=== PATIENT | male | born 1985 | race Caucasian/White ===

== ENCOUNTER 2018-03-07 16:35 | Inpatient (IN) ==
--- NOTE | 2018-03-07 17:29 | Emergency Department Note ---
Disposition Clinical Impression: Suicidal ideation, Bipolar disorder, Depression, Acute anxiety Disposition: Admitted As Inpatient Condition: Fair Referrals: Sirena Jeffries MD [Non-Partnered Physician] - Forms: ED Satisfaction Letter General Adult HPI - General Chief complaint: ED Psychiatric Symptoms Stated complaint: SI Time Seen by Provider: 03/07/18 17:24 Source: patient Limitations: no limitations - History of Present Illness HPI Narrative: 33-year-old male with history of bipolar disorder comes emergency department with concerns regarding increasing anxiety depression feeling like harming himself. There is no history of self-injurious behavior or attempted overdose. The patient denies acute physical complaints. No chest pain charge breath about pain vomiting diarrhea confusion falls injuries or any trouble walking talking hearing seeing or speaking. He comes in with his and mother. The patient states his bipolar medications Delsym be working. He is usually seen at [facility] in [place]. Pain Scale: 4 - Related Data Allergies Allergy/AdvReac Type Severity Reaction Status Date / Time codeine Allergy bradycardia Verified 03/07/18 16:43 All systems ED: reviewed and negative except as stated. Past Medical History - Past Medical History Medical history: Reports: no medical history Psychiatric history: Reports: anxiety, bipolar, depression, PTSD, prior suicide attempt, previous psychiatric hospitalization - Social History Smoking Status: Never smoker Smokeless Tobacco Status: No Alcohol use: Reports: occasionally Drug use: Reports: none Physical Exam - General Limitations: no limitations General appearance: alert, in no apparent distress - Head Head exam: atraumatic, normocephalic, normal inspection - Eye Eye exam: Present: normal appearance, PERRL, EOMI - ENT ENT exam: normal exam, normal oropharynx, mucous membranes moist - Neck Neck exam: Present: normal inspection, full ROM, trachea midline - Chest Chest inspection: Present: normal inspection, symmetric chest wall rise - Respiratory Respiratory exam: Present: normal lung sounds bilaterally. Absent: respiratory distress - Cardiovascular Cardiovascular exam: Present: regular rate, normal rhythm, normal heart sounds - Abdominal Exam Abdominal exam: Present: soft, Non-Tender, normal bowel sounds. Absent: tenderness, distention, guarding, rebound, rigidity - Extremities Exam Extremities exam: Present: normal inspection, full ROM, normal capillary refill. Absent: tenderness, pedal edema, joint swelling, calf tenderness - Expanded Lower Extremity Exam Neurovascular/Tendon exam: Present: normal capillary refill. Absent: motor deficit, sensory deficit, tendon deficit, extremity cold to touch - Back Exam Back exam: Present: normal inspection, full ROM. Absent: tenderness, CVA tenderness (R), CVA tenderness (L), vertebral tenderness - Neurological Exam Neurological exam: Present: alert, oriented X3, CN II-XII intact. Absent: motor sensory deficit - Psychiatric Psychiatric exam: Present: normal affect, normal mood - Skin Skin exam: Present: warm, dry, intact, normal color Course Vital Signs Temperature 98.0 F 03/07/18 16:41 Pulse Rate 84 03/07/18 16:41 Respiratory Rate 16 03/07/18 16:41 Blood Pressure 146/93 03/07/18 16:41 O2 Sat by Pulse Oximetry 95 03/07/18 16:41 Temperature 98.0 F 03/07/18 16:43 Pulse Rate 84 03/07/18 16:43 Respiratory Rate 16 03/07/18 16:43 Blood Pressure 146/93 03/07/18 16:43 O2 Sat by Pulse Oximetry 95 03/07/18 16:43 Oxygen Delivery Oxygen Delivery Room Air Medical Decision Making - [facility] Narrative Medical decision making narrative: The patient has no physical complaints and there is no history of self-injurious behaviors or attempted overdose. He has been medically cleared. I called the counselor from , they have evaluated the patient recommend psychiatric admission. The patient is stable pending admission - Lab Data Lab results reviewed: Yes I reviewed the patient's lab results. Result diagrams: 03/07/18 17:37 03/07/18 17:37 Lab Results 03/07/18 03/07/18 03/07/18 Range/Units 17:37 17:37 17:55 WBC 6.2 (4.3-11.1) K/mcL RBC 4.37 (4.19-5.50) M/mcL Hgb 12.9 (12.9-16.9) g/dL Hct 39.3 (37.5-50.1) % MCV 89.9 (83.0-100.0) fL MCH 29.5 (28.0-33.3) pg MCHC 32.8 (31.6-35.5) g/dL RDW 11.9 (11.5-14.5) % Plt Count 225 (140-400) K/mcL MPV 9.2 L (9.4-12.4) fL Immature Gran % 0.2 (0-4) % Seg Neutrophils % 59.0 % Lymphocytes % 32.7 % Monocytes % 6.0 % Eosinophils % 1.8 % Basophils % 0.3 % Neutrophils # 3.7 (1.6-8.9) K/mcL Lymphocytes # 2.0 (0.6-4.6) K/mcL Monocytes # 0.4 (0.0-1.3) K/mcL Eosinophils # 0.1 (0.0-0.6) K/mcL Basophils # 0.0 (0.0-0.2) K/mcL Sodium 136 (136-145) mEq/L Potassium 5.0 (3.5-5.1) mEq/L Chloride 101 (98-107) mEq/L Carbon Dioxide 30 H (23-29) mEq/L BUN 12 (6-20) mg/dL Creatinine 0.78 (0.70-1.30) mg/dL Est GFR ( Amer) > 60 (> 60) Est GFR (Non-Af Amer) > 60 (> 60) BUN/Creatinine Ratio 15 (6-26) Glucose 109 H (70-105) mg/dL Calculated Osmolality 282 (280-300) Calcium 9.8 (8.6-10.3) mg/dL Total Bilirubin 0.2 L (0.3-1.0) mg/dL Direct Bilirubin 0.1 (0.0-0.2) mg/dL Indirect Bilirubin 0.1 (0.0-1.2) mg/dL AST 17 (13-39) Units/L ALT 17 (7-52) Units/L Alkaline Phosphatase 90 (34-104) Units/L Serum Total Protein 7.1 (6.4-8.9) g/dL Albumin 4.7 (3.5-5.7) g/dL Globulin 2.4 (2.4-3.5) g/dL Albumin/Globulin Ratio 2.0 (1.1-2.2) Urine Color Yellow (Yellow) Urine Clarity Clear (Clear) Urine pH 6.0 (5.0-8.0) pH Units Ur Specific [place] 1.006 L (1.010-1.025) Urine Protein Negative (Neg-Trace) mg/dL Urine Glucose (UA) Normal (Normal) mg/dL Urine Ketones Negative (Negative) mg/dL Urine Blood Negative (Negative) Urine Nitrite Negative (Negative) Urine Bilirubin Negative (Negative) Urine Urobilinogen Normal (Normal) mg/dL Ur Leukocyte Esterase Negative (Negative) Salicylates < 2.5 L (15.0-30.0) mg/dL Urine Opiates Screen (Efmtjp=006) ng/mL Acetaminophen < 10 L (10-20) mcg/mL Ur Barbiturates Screen (Zvrwtc=378) ng/mL Ur Phencyclidine Scrn (Cutoff=25) ng/mL Ur Amphetamines Screen (Zvtzlz=5036) ng/mL U Benzodiazepines Scrn (Gdtkik=870) ng/mL Urine Cocaine Screen (Cutoff= 300) ng/mL U Marijuana (THC) Screen (Cutoff = 50) ng/mL Ur Drug Screen Interp Ethyl Alcohol < 10 (Less than 10) mg/dL 03/07/18 Range/Units 17:55 WBC (4.3-11.1) K/mcL RBC (4.19-5.50) M/mcL Hgb (12.9-16.9) g/dL Hct (37.5-50.1) % MCV (83.0-100.0) fL MCH (28.0-33.3) pg MCHC (31.6-35.5) g/dL RDW (11.5-14.5) % Plt Count (140-400) K/mcL MPV (9.4-12.4) fL Immature Gran % (0-4) % Seg Neutrophils % % Lymphocytes % % Monocytes % % Eosinophils % % Basophils % % Neutrophils # (1.6-8.9) K/mcL Lymphocytes # (0.6-4.6) K/mcL Monocytes # (0.0-1.3) K/mcL Eosinophils # (0.0-0.6) K/mcL Basophils # (0.0-0.2) K/mcL Sodium (136-145) mEq/L Potassium (3.5-5.1) mEq/L Chloride (98-107) mEq/L Carbon Dioxide (23-29) mEq/L BUN (6-20) mg/dL Creatinine (0.70-1.30) mg/dL Est GFR ( Amer) (> 60) Est GFR (Non-Af Amer) (> 60) BUN/Creatinine Ratio (6-26) Glucose (70-105) mg/dL Calculated Osmolality (280-300) Calcium (8.6-10.3) mg/dL Total Bilirubin (0.3-1.0) mg/dL Direct Bilirubin (0.0-0.2) mg/dL Indirect Bilirubin (0.0-1.2) mg/dL AST (13-39) Units/L ALT (7-52) Units/L Alkaline Phosphatase (34-104) Units/L Serum Total Protein (6.4-8.9) g/dL Albumin (3.5-5.7) g/dL Globulin (2.4-3.5) g/dL Albumin/Globulin Ratio (1.1-2.2) Urine Color (Yellow) Urine Clarity (Clear) Urine pH (5.0-8.0) pH Units Ur Specific [place] (1.010-1.025) Urine Protein (Neg-Trace) mg/dL Urine Glucose (UA) (Normal) mg/dL Urine Ketones (Negative) mg/dL Urine Blood (Negative) Urine Nitrite (Negative) Urine Bilirubin (Negative) Urine Urobilinogen (Normal) mg/dL Ur Leukocyte Esterase (Negative) Salicylates (15.0-30.0) mg/dL Urine Opiates Screen Negative (Jeoftl=155) ng/mL Acetaminophen (10-20) mcg/mL Ur Barbiturates Screen Negative (Uowksu=924) ng/mL Ur Phencyclidine Scrn Negative (Cutoff=25) ng/mL Ur Amphetamines Screen Negative (Lripai=9604) ng/mL U Benzodiazepines Scrn Negative (Xmjaqw=308) ng/mL Urine Cocaine Screen Negative (Cutoff= 300) ng/mL U Marijuana (THC) Screen Negative (Cutoff = 50) ng/mL Ur Drug Screen Interp See Below Ethyl Alcohol (Less than 10) mg/dL
[2018-03-07 17:59] LABS: Basophils % 0.3 %; Eosinophils # 0.1 K/mcL (0.0-0.6); Eosinophils % 1.8 %; Hematocrit 39.3 % (37.5-50.1); Hemoglobin 12.9 g/dL (12.9-16.9); Immature Granulocytes % 0.2 % (0-4); Lymphocytes % 32.7 %; Mean Corpuscular HGB Conc 32.8 g/dL (31.6-35.5); Mean Corpuscular Hemoglobin 29.5 pg (28.0-33.3); Mean Corpuscular Volume 89.9 fL (83.0-100.0); Mean Platelet Volume 9.2 fL (9.4-12.4); Monocytes # 0.4 K/mcL (0.0-1.3); Neutrophils # 3.7 K/mcL (1.6-8.9); Platelet Count 225 K/mcL (140-400); Red Blood Count 4.37 M/mcL (4.19-5.50); Red Cell Distribution Width 11.9 % (11.5-14.5)
[2018-03-07 18:08] LABS: Bilirubin,Urine Negative (Negative); Blood,Urine Negative (Negative); Clarity,Urine Clear (Clear); Color,Urine Yellow (Yellow); Glucose,Urine (UA) Normal (Normal); Ketones,Urine Negative (Negative); Leukocyte Esterase,Urine Negative (Negative); Nitrite,Urine Negative (Negative); Protein,Urine Negative (Neg-Trace); Specific Gravity,Urine 1.006 (1.010-1.025); Urobilinogen,Urine Normal (Normal)
[2018-03-07 18:17] LABS: Acetaminophen < 10 mcg/mL (10-20); Alanine Aminotransferase 17 Units/L (7-52); Albumin 4.7 g/dL (3.5-5.7); Alkaline Phosphatase 90 Units/L (34-104); Aspartate Amino Transferase 17 Units/L (13-39); BUN/Creatinine Ratio 15 (6-26); Bilirubin,Direct 0.1 mg/dL (0.0-0.2); Bilirubin,Indirect 0.1 mg/dL (0.0-1.2); Bilirubin,Total 0.2 mg/dL (0.3-1.0); Blood Urea Nitrogen 12 mg/dL (6-20); Calcium 9.8 mg/dL (8.6-10.3); Carbon Dioxide 30 mEq/L (23-29); Chloride 101 mEq/L (98-107); Ethanol < 10 mg/dL (Less than 10); Globulin 2.4 g/dL (2.4-3.5); Glucose 109 mg/dL (70-105); Osmolality,Calculated 282 (280-300); Salicylate < 2.5 mg/dL (15.0-30.0); Sodium 136 mEq/L (136-145); Total Protein 7.1 g/dL (6.4-8.9); eGFR For Non-African Americans > 60 (> 60)
[2018-03-07 18:43] LABS: Amphetamine Screen,Urine Negative ng/mL (Cutoff=1000); Barbiturate Screen,Urine Negative ng/mL (Cutoff=200); Benzodiazepines Screen,Urine Negative ng/mL (Cutoff=200); Cannabinoid Screen,Urine Negative ng/mL (Cutoff = 50); Cocaine Screen,Urine Negative ng/mL (Cutoff= 300); Opiate Screen,Urine Negative ng/mL (Cutoff=300); Phencyclidine Screen,Urine Negative ng/mL (Cutoff=25)
[2018-03-07] MEDS ORDERED: traZODone 50 MG TABLET PO PRN (20:10)
[2018-03-07] MEDS ORDERED: *HR* LORazepam 2 MG/ML VIAL IM PRN (20:10)
[2018-03-07] MEDS ORDERED: hydrOXYzine pamoate 25 MG CAPSULE PO PRN (20:10)
[2018-03-07] MEDS ORDERED: Mag Hydrox/Al Hydrox/Simeth 30 ML UDC PO PRN (20:10)
[2018-03-07] MEDS ORDERED: MOM Conc 10 ML UD.LIQ PO PRN (20:10)
[2018-03-07] MEDS ORDERED: Ibuprofen 400 MG TABLET PO PRN (20:10)
[2018-03-07] MEDS ORDERED: Haloperidol Lactate 5 MG/ML VIAL IM PRN (20:10)
[2018-03-07] MEDS ORDERED: *HR* LORazepam 1 MG TABLET PO PRN (20:10)
[2018-03-07] MEDS: Gabapentin 400 MG CAPSULE PO SCH (21:09)
[2018-03-07] MEDS: Lurasidone 20 MG TABLET PO SCH (21:10)
[2018-03-08] MEDS: Gabapentin 400 MG CAPSULE PO SCH ×3 (09:03→21:03)
[2018-03-08] MEDS: FLUoxetine 20 MG CAPSULE PO SCH (09:03)
--- NOTE | 2018-03-08 09:05 | Psychiatry History & Physical ---
Date of Encounter: 03/08/18 Time of Encounter: 09:03 History of Present Illness Patient Stated Chief Complaint: "I was feeling like killing myself" Medicare Admission Attestation: For traditional Medicare patients the provided hospital inpatient services are reasonable and necessary and in the case of services not specified as inpatient-only under 42 CFR 419.22 (n), that they are appropriately provided as inpatient services in accordance 42 CFR 412.3. For Critical Access Hospital the patient may reasonably be expected to be discharged or transferred to a hospital within 96 hours after admission to the Critical Access Hospital. Admitted From: Emergency Dept Plans for Post Hospital Care: Home History of Present Illness: Mr. Mandujano is a 33 year old male who presented to the emergency room with depression which has been worsening since his grandmother in October. He reported that he has been hopeless with anhedonia decreased interest feelings of guilt and worthlessness low energy and impaired concentration he has had fleeting suicidal ideations with a plan to cut his wrists. He has been compliant with his Prozac and arrested him. He states currently that while he does have the fleeting thoughts he has no intention of killing himself and would not want to do that to his girlfriend. Additionally his brother had a suicide attempt in October which left him with a CVA so he would not want to have that sort of a complication. Substance abuse: He reports occasionally drinking a shot of whiskey about once per month he denies other drugs of abuse. Past Med Surg Social Fam HX - Past Medical History Medical history: no medical history - Past Psychiatric History Psychiatric history: Reports: ADHD, bipolar, previous psychiatric hospitalization Past psychiatric history details: He has been at [address] twice in the past in 2013 in 2014. He has also been at the crisis unit and [place] police on a few occasions. He follows with [facility] for his outpatient services. He has been tried on numerous psychiatric medications and says that at times he has been on up to 10 psychiatric medications at the time. He said he then went off his cold turkey but started to go back on them in August when his grandmother got sick. Knee that he can recall in the past are Abilify which made him itchy Wellbutrin which did not have much impact records also support that he has been tried on BuSpar Geodon Vyvanse Zyprexa Klonopin and Ativan in the past. Family psychiatric history: Yes Family Psychiatric History Details: He has a brother with substance use disorder. Family History of Suicide: Attempted Family Suicide History Details: Brother attempted suicide with an overdose of heroin and methamphetamines and ended up with a CVA - Past Surgical History Surgical History: cholecystectomy - Social History Smoking Status: Never smoker Smokeless Tobacco Status: No Alcohol use: occasionally Drug use: none - Family History Mother Adopted: [place]: mark mandujano Age: 62 Family Member Ethnicity: Non- Living Status: Still Living Hx Family Cardiac Disorders: No Hx Family Respiratory Disorders: Yes (COPD) Hx Family Cancer: No Hx Family GI Disorders: No Hx Family Genitourinary Disorders: No Hx Family Endocrine Disorder: No Hx Family Musculoskeletal Disorders: No Hx Family Neuromuscular Disorders: No Hx Family Neurologic Disorders: No Hx Family HEENT Disorders: No Hx Family Autoimmune Disorders: No Hx Family Reproductive Disorders: No Hx Family Psychosocial Disorders: No Hx Family Medical Disorders: Yes (bipolar) Medications & Allergies FLUoxetine HCl [Fluoxetine HCl] 80 mg PO DAILY 03/07/18 [History] Gabapentin [Neurontin] 800 mg PO TID 03/07/18 [History] Lurasidone HCl [Latuda] 60 mg PO QPM 03/07/18 [History] Allergy/AdvReac Type Severity Reaction Status Date / Time codeine Allergy bradycardia Verified 03/07/18 16:43 Review of Systems Constitutional: Reports: other (He has Klinefelter's and has some feminized features). Denies: fever, chills, weakness, weight change Neurological: Denies: headache, weakness, numbness, memory loss Psychiatric: Reports: depression, suicidal ideation, anhedonia, difficulty concentrating, hopelessness Exam - HEENT Head exam IM: Present: atraumatic - Skin Skin exam IM: Present: dry, warm - Constitutional Vitals: Temp Pulse Resp BP Pulse Ox 99.1 F 75 16 128/83 98 03/07/18 20:32 03/07/18 20:32 03/07/18 20:32 03/07/18 20:32 03/07/18 20:32 General appearance: age & developmentally appropriate Additional observations: Consistent with Klinefelter's appearance - Musculoskeletal Gait: normal Station: other Strength & Tone: normal for patient - Psychiatric Patient Orientation: Yes Person, Yes Time, Yes Place, Yes Circumstance Level of alertness: Alert Behavior: calm Psychomotor activity: Normal Eye Contact: Maintains Eye Contact Mood Description: Depressed Patient description of mood: "Down" Affect description: congruent with mood Speech Volume: Normal Speech pattern: normal rate Language & Vocabulary: consistent with education Thought Process: Linear, Goal Oriented Thought Content: Yes Suicidal ideation Perceptual Disturbances: No Auditory hallucinations, No Visual hallucinations Attention Span Ability: Capable of Focused Attention Memory Description: Grossly Intact Patient Reliability: Reliable Historian Fund of knowledge: Yes abstraction ability, Yes average, Yes aware of current events Intelligence Estimate: Average Judgment: Fair Insight: Partial Results - Drug Levels and Toxicology Drug Levels and Toxicology: Drug Levels and Toxicity 03/07/18 03/07/18 17:37 17:55 Urine Opiates Screen Negative Acetaminophen < 10 L Ur Barbiturates Screen Negative Ur Phencyclidine Scrn Negative Ur Amphetamines Screen Negative U Benzodiazepines Scrn Negative Urine Cocaine Screen Negative U Marijuana (THC) Screen Negative Ethyl Alcohol < 10 - Labs Labs: Laboratory Last Values WBC 6.2 K/mcL (4.3-11.1) 03/07/18 17:37 RBC 4.37 M/mcL (4.19-5.50) 03/07/18 17:37 Hgb 12.9 g/dL (12.9-16.9) 03/07/18 17:37 Hct 39.3 % (37.5-50.1) 03/07/18 17:37 MCV 89.9 fL (83.0-100.0) 03/07/18 17:37 MCH 29.5 pg (28.0-33.3) 03/07/18 17:37 MCHC 32.8 g/dL (31.6-35.5) 03/07/18 17:37 RDW 11.9 % (11.5-14.5) 03/07/18 17:37 Plt Count 225 K/mcL (140-400) 03/07/18 17:37 MPV 9.2 fL (9.4-12.4) L 03/07/18 17:37 Immature Gran % 0.2 % (0-4) 03/07/18 17:37 Seg Neutrophils % 59.0 % 03/07/18 17:37 Lymphocytes % 32.7 % 03/07/18 17:37 Monocytes % 6.0 % 03/07/18 17:37 Eosinophils % 1.8 % 03/07/18 17:37 Basophils % 0.3 % 03/07/18 17:37 Neutrophils # 3.7 K/mcL (1.6-8.9) 03/07/18 17:37 Lymphocytes # 2.0 K/mcL (0.6-4.6) 03/07/18 17:37 Monocytes # 0.4 K/mcL (0.0-1.3) 03/07/18 17:37 Eosinophils # 0.1 K/mcL (0.0-0.6) 03/07/18 17:37 Basophils # 0.0 K/mcL (0.0-0.2) 03/07/18 17:37 Sodium 136 mEq/L (136-145) 03/07/18 17:37 Potassium 5.0 mEq/L (3.5-5.1) 03/07/18 17:37 Chloride 101 mEq/L (98-107) 03/07/18 17:37 Carbon Dioxide 30 mEq/L (23-29) H 03/07/18 17:37 BUN 12 mg/dL (6-20) 03/07/18 17:37 Creatinine 0.78 mg/dL (0.70-1.30) 03/07/18 17:37 Est GFR ( Amer) > 60 (> 60) 03/07/18 17:37 Est GFR (Non-Af Amer) > 60 (> 60) 03/07/18 17:37 BUN/Creatinine Ratio 15 (6-26) 03/07/18 17:37 Glucose 109 mg/dL (70-105) H 03/07/18 17:37 Calculated Osmolality 282 (280-300) 03/07/18 17:37 Calcium 9.8 mg/dL (8.6-10.3) 03/07/18 17:37 Total Bilirubin 0.2 mg/dL (0.3-1.0) L 03/07/18 17:37 Direct Bilirubin 0.1 mg/dL (0.0-0.2) 03/07/18 17:37 Indirect Bilirubin 0.1 mg/dL (0.0-1.2) 03/07/18 17:37 AST 17 Units/L (13-39) 03/07/18 17:37 ALT 17 Units/L (7-52) 03/07/18 17:37 Alkaline Phosphatase 90 Units/L (34-104) 03/07/18 17:37 Serum Total Protein 7.1 g/dL (6.4-8.9) 03/07/18 17:37 Albumin 4.7 g/dL (3.5-5.7) 03/07/18 17:37 Globulin 2.4 g/dL (2.4-3.5) 03/07/18 17:37 Albumin/Globulin Ratio 2.0 (1.1-2.2) 03/07/18 17:37 Urine Color Yellow (Yellow) 03/07/18 17:55 Urine Clarity Clear (Clear) 03/07/18 17:55 Urine pH 6.0 pH Units (5.0-8.0) 03/07/18 17:55 Ur Specific [place] 1.006 (1.010-1.025) L 03/07/18 17:55 Urine Protein Negative mg/dL (Neg-Trace) 03/07/18 17:55 Urine Glucose (UA) Normal mg/dL (Normal) 03/07/18 17:55 Urine Ketones Negative mg/dL (Negative) 03/07/18 17:55 Urine Blood Negative (Negative) 03/07/18 17:55 Urine Nitrite Negative (Negative) 03/07/18 17:55 Urine Bilirubin Negative (Negative) 03/07/18 17:55 Urine Urobilinogen Normal mg/dL (Normal) 03/07/18 17:55 Ur Leukocyte Esterase Negative (Negative) 03/07/18 17:55 Salicylates < 2.5 mg/dL (15.0-30.0) L 03/07/18 17:37 Urine Opiates Screen Negative ng/mL (Sayvxn=329) 03/07/18 17:55 Acetaminophen < 10 mcg/mL (10-20) L 03/07/18 17:37 Ur Barbiturates Screen Negative ng/mL (Wijayr=178) 03/07/18 17:55 Ur Phencyclidine Scrn Negative ng/mL (Cutoff=25) 03/07/18 17:55 Ur Amphetamines Screen Negative ng/mL (Gvbfdb=8067) 03/07/18 17:55 U Benzodiazepines Scrn Negative ng/mL (Skaakk=690) 03/07/18 17:55 Urine Cocaine Screen Negative ng/mL (Cutoff= 300) 03/07/18 17:55 U Marijuana (THC) Screen Negative ng/mL (Cutoff = 50) 03/07/18 17:55 Ur Drug Screen Interp See Below 03/07/18 17:55 Ethyl Alcohol < 10 mg/dL (Less than 10) 03/07/18 17:37 Assessment and Plan (1) Bipolar disorder Current visit: Yes Status: Acute Plan: Admit inpatient for safety and stabilization, Close observation, Suicide Precautions per unit protocol, Encourage participation in unit milieu, Group Therapy, Monitor sleep, Monitor appetite Additional Plan: Will augment his Prozac with Wellbutrin XL 150 by mouth every morning to further aid in his depression. Encourage attendance of group therapy. I have reviewed his past records. Risks, benefits, side effects, alternatives discussed w/pt: Yes Patient agreeable to treatment: Yes Plans for Post Hospital Care: Home Estimated Length of Stay (Days): 2 Qualifiers: Active/Remission status: currently active Current bipolar episode type: depressed Current episode severity: severe Psychotic features: without psychotic features Qualified Code(s): F31.4 - Bipolar disorder, current episode depressed, severe, without psychotic features
[2018-03-08] MEDS: BuPROPion XL (24 HR) 150 MG TABLET PO SCH (09:37)
[2018-03-08] MEDS: Lurasidone 20 MG TABLET PO SCH (18:56)
[2018-03-08] MEDS ORDERED: Lurasidone 20 MG TABLET PO SCH (21:00)
[2018-03-09] MEDS: FLUoxetine 20 MG CAPSULE PO SCH (09:03)
[2018-03-09] MEDS: Gabapentin 400 MG CAPSULE PO SCH (09:03)
[2018-03-09] MEDS: BuPROPion XL (24 HR) 150 MG TABLET PO SCH (09:03)
[2018-03-09 09:34] VITALS: BP 113/78
--- NOTE | 2018-03-09 09:37 | Discharge Summary ---
Date of Encounter: 03/09/18 Time of Encounter: 09:32 Diagnosis - Discharge Diagnosis (1) Bipolar disorder Status: Acute Qualifiers: Active/Remission status: currently active Current bipolar episode type: depressed Current episode severity: severe Psychotic features: without psychotic features Qualified Code(s): F31.4 - Bipolar disorder, current episode depressed, severe, without psychotic features Medications - Discharge Medications Prescriptions: BuPROPion XL (24 HR) [Wellbutrin Xl] 150 mg PO DAILY #30 tab.er.24h FLUoxetine HCl [Fluoxetine HCl] 80 mg PO DAILY 03/07/18 [History] Gabapentin [Neurontin] 800 mg PO TID 03/07/18 [History] Lurasidone HCl [Latuda] 60 mg PO DAILY 03/07/18 [History] BuPROPion XL (24 HR) [Wellbutrin Xl] 150 mg PO DAILY #30 tab.er.24h 03/09/18 [Rx] Allergy/AdvReac Type Severity Reaction Status Date / Time codeine Allergy "SLOWS Verified 03/08/18 19:02 DOWN MY HEART" Results Procedures and tests throughout hospitalization: Completed Lab Orders Category Date Time Status Acetaminophen Stat Lab 03/07/18 17:37 Completed Basic Metabolic Panel Stat Lab 03/07/18 17:37 Completed Complete Blood Count [HEME] Stat Lab 03/07/18 17:37 Completed Drug Screen, Urine [UCHEM] Stat Lab 03/07/18 17:55 Completed Ethanol Stat Lab 03/07/18 17:37 Completed Hepatic Panel Stat Lab 03/07/18 17:37 Completed Salicylate Stat Lab 03/07/18 17:37 Completed Urinalysis reflex Microscopic [URIN] Stat Lab 03/07/18 17:55 Completed Provider Date of admission: 03/07/18 19:21 Primary care physician: PCP NONE Discharging clinician: Toyin Dennis Psychiatry Exam - Constitutional Vitals: Temp Pulse Resp BP Pulse Ox 98.6 F 86 18 126/82 100 03/08/18 21:00 03/08/18 21:00 03/08/18 21:00 03/08/18 21:00 03/08/18 21:00 Additional observations: Patient is alert and oriented [address] time and situation, muscle tone grossly intact, speech normal limits for rhythm, rate, content and volume. Muscle tone is normal for patient. Grooming and hygiene are appropriate and eye contact is maintained appropriately. The patient appears age appropriate. He is feminized features. Behavior is cooperative. Thought content is negative for suicidal or homicidal thoughts ideations or plans. There are no hallucinations or delusions. Mood is good and affect is reactive, consistent and congruent. Thought process is linear, logical, goal oriented and coherent thought. Memory is intact to recent and remote as the patient is able to recall several items after a delay and can consistently recall childhood information. Language and vocabulary are consistent with education and intelligence is estimated to be average based on education and general fund of information. Concentration and attention are sustained and appropriate. Insight and judgment are intact as the patient agrees with her diagnosis and the need for ongoing mental health treatment. Hospital Course Hospital course: Mr. Acevedo is a 33 year old male who was admitted for depression and suicidal ideations. Even upon admission he reported that he did not have any intention to harm himself. He is well aware of the impact this can have as his brother is now debilitated due to suicide attempt which caused CVA. He has done well on the unit. Wellbutrin was added which he has tolerated well.Patient was educated of diagnosis and the risk-benefit side effects of this alternative treatment options and was monitored for responsiveness and side effects. Mood anxiety sleep and appetite interest improved as did future orientation. Self-harm thoughts subsided, thinking cleared, psychosis resolved, and mood stabilized. Coleman diehl was able to attend both individual and group therapy sessions as well as meeting with the psychiatrist daily and urged to discuss any medication or treatment issues or other concerns. The patient was educated primarily by verbal means about their diagnosis and manifestations in their life. The option for treatment including group and individual therapy programming was offered to the patient in the use of medications with all their potential risks, benefits, and side effects were discussed with the patient at length. The patient was given the opportunity to ask questions and was noted to participate in the treatment in the planning process. The patient felt ready and eager to be discharged from the inpatient psychiatric unit to continue on with treatment as an outpatient. The patient agreed that is they were safe for this disposition. The patient was considered to be able to participate in informed consent and decision making with respect to medical, legal, and financial issues of the time of discharge. At the time of discharge the patient adamantly denied any concerns for lethality including suicidal or homicidal thoughts ideations or plans and was future oriented toward ongoing mental health care, medical follow- up and sobriety. Time spent discussing smoking cessation with patient: 3 to 10 minutes Does patient wish to continue nicotine replacement upon disc: No - Time Spent with Patient Total time spent providing and/or coordinating discharge services: Greater than 30 minutes Specific discharge activities: Interval history reviewed. Available labs reviewed . Psychotherapy provided. Patient had an opportunity to ask questions and address concerns. Patient was in agreement with the treatment plan. The risks benefits and side effects of medications were discussed with the patient, including alternatives and treatment. The patient was educated on the abstaining from any alcohol or illicit substances, following up with all scheduled appointments, and taking all medications as prescribed. Assessment and Plan - Patient/Caregiver Discharge Instructions Activity: resume usual activities as tolerated Diet: regular diet Additional Instructions: Continue current medications. Follow up with outpatient mental health. Encourage continued therapy in a group or individual setting. The patient was discharged to home. - Follow up Plan Follow up with: NONE,PCP [Primary Care Provider] - Functional capacity at discharge: independent ambulation Overall status at discharge: Stable Disposition: Home, Self-Care Quality - Multiple Antipsychotics Patient discharged on 2 or more antipsychotic medications: No Procedures - Procedures Procedures: Medication Management, Crisis Stabilization, Supportive Therapy, Group Therapy, Psychoeducational Therapy
== END 2018-03-09 13:22 | disposition home or self-care (01) | DRG 885 ==
LOC: EMEROOARM 16:35 → 1ANU 19:21
PROVIDERS: ADMIT Psychiatry & Neurology Psychiatry; ATTEND Psychiatry & Neurology Psychiatry

== ENCOUNTER 2018-11-29 17:03 | Inpatient (IN) ==
[2018-11-29 17:45] LABS: Bilirubin,Urine Negative (Negative); Blood,Urine Negative (Negative); Clarity,Urine Clear (Clear); Color,Urine Yellow (Yellow); Glucose,Urine (UA) Normal (Normal); Ketones,Urine Negative (Negative); Leukocyte Esterase,Urine Negative (Negative); Nitrite,Urine Negative (Negative); PH,Urine 6.5 pH Units (5.0-8.0); Protein,Urine Negative (Neg-Trace); Specific Gravity,Urine 1.014 (1.010-1.025); Urobilinogen,Urine Normal (Normal)
[2018-11-29 17:55] LABS: Amphetamine Screen,Urine Negative ng/mL (Cutoff=1000); Barbiturate Screen,Urine Negative ng/mL (Cutoff=200); Benzodiazepines Screen,Urine Positive ng/mL (Cutoff=200); Cannabinoid Screen,Urine Negative ng/mL (Cutoff = 50); Cocaine Screen,Urine Negative ng/mL (Cutoff= 300); Opiate Screen,Urine Negative ng/mL (Cutoff=300); Phencyclidine Screen,Urine Negative ng/mL (Cutoff=25)
[2018-11-29 18:06] LABS: Basophils % 0.5 %; Eosinophils # 0.1 K/mcL (0.0-0.6); Eosinophils % 1.1 %; Hemoglobin 13.2 g/dL (12.9-16.9); Immature Granulocytes % 0.5 % (0-4); Lymphocytes # 1.9 K/mcL (0.6-4.6); Mean Corpuscular Hemoglobin 30.2 pg (28.0-33.3); Mean Corpuscular Volume 91.5 fL (83.0-100.0); Mean Platelet Volume 9.4 fL (9.4-12.4); Monocytes # 0.5 K/mcL (0.0-1.3); Monocytes % 6.4 %; Neutrophils # 5.7 K/mcL (1.6-8.9); Platelet Count 297 K/mcL (140-400); Red Blood Count 4.37 M/mcL (4.19-5.50); Red Cell Distribution Width 12.6 % (11.5-14.5); Segmented Neutrophils % 68.5 %; White Blood Count 8.3 K/mcL (4.3-11.1)
[2018-11-29 18:11] LABS: Estimated Average Glucose 103 mg/dl
[2018-11-29 18:26] LABS: Acetaminophen < 10 mcg/mL (10-20); BUN/Creatinine Ratio 6 (6-26); Blood Urea Nitrogen 5 mg/dL (6-20); Calcium 9.5 mg/dL (8.6-10.3); Carbon Dioxide 22 mEq/L (23-29); Chloride 105 mEq/L (98-107); Chol/HDL Ratio 1.9 (0-4.9); Cholesterol 129 mg/dL (< 200); Ethanol < 10 mg/dL (Less than 10); Glucose 118 mg/dL (70-105); HDL Cholesterol 67 mg/dL (40-59); LDL Cholesterol,Calculated 47 mg/dL (0-99); Osmolality,Calculated 278 (280-300); Potassium 3.7 mEq/L (3.5-5.1); Salicylate < 2.5 mg/dL (15.0-30.0); Sodium 135 mEq/L (136-145); Triglycerides 73 mg/dL (< 150); eGFR For African Americans > 60 (> 60); eGFR For Non-African Americans > 60 (> 60)
[2018-11-29] MEDS ORDERED: Haloperidol Lactate 5 MG/ML VIAL IM PRN (21:50)
[2018-11-29] MEDS ORDERED: *HR* LORazepam 1 MG TABLET PO PRN (21:50)
[2018-11-29] MEDS ORDERED: traZODone 50 MG TABLET PO PRN (21:50)
[2018-11-29] MEDS ORDERED: Ibuprofen 400 MG TABLET PO PRN (21:50)
[2018-11-29] MEDS ORDERED: MOM Conc 10 ML UD.LIQ PO PRN (21:50)
[2018-11-29] MEDS ORDERED: *HR* LORazepam 2 MG/ML VIAL IM PRN (21:50)
[2018-11-29] MEDS ORDERED: hydrOXYzine pamoate 25 MG CAPSULE PO PRN (21:50)
[2018-11-29] MEDS ORDERED: Mag Hydrox/Al Hydrox/Simeth 30 ML UDC PO PRN (21:50)
[2018-11-29] MEDS: Lithium Carbonate 300 MG CAPSULE PO SCH (23:50)
[2018-11-29] MEDS: diazePAM 2 MG TABLET PO PRN (23:51)
[2018-11-30] MEDS: Levothyroxine 25 MCG TABLET PO SCH (05:54)
[2018-11-30] MEDS ORDERED: Lithium Carbonate 300 MG CAPSULE PO SCH (09:00)
[2018-11-30] MEDS: diazePAM 2 MG TABLET PO PRN ×2 (09:13→16:00)
[2018-11-30] MEDS: BuPROPion XL (24 HR) 150 MG TABLET PO SCH (10:43)
[2018-11-30] MEDS: Lithium Carbonate 300 MG CAPSULE PO SCH (21:33)
[2018-12-01] MEDS: Levothyroxine 25 MCG TABLET PO SCH (06:52)
[2018-12-01] MEDS ORDERED: Lithium Carbonate 300 MG CAPSULE PO SCH (09:00)
[2018-12-01] MEDS: BuPROPion XL (24 HR) 150 MG TABLET PO SCH (09:43)
[2018-12-01 09:54] VITALS: BP 118/82
== END 2018-12-01 11:57 | disposition home or self-care (01) | DRG 885 ==
LOC: EMEROOARM 17:03 → 1ANU 20:11
PROVIDERS: ADMIT Psychiatry & Neurology Psychiatry; ATTEND Psychiatry & Neurology Psychiatry